=== PATIENT | male | born 1980 | race Caucasian/White ===

== ENCOUNTER 2019-09-24 13:24 | Emergency (ER) | payer OTHER ==
[2019-09-24 13:32] VITALS: BP 116/57; PULSE 90; TEMP 98; BMI 24.4
--- NOTE | 2019-09-24 13:34 | PDOC ---
Rapid Medical Evaluation Time Seen by Provider: 09/24/19 13:31 Medical Evaluation: Allergies Allergy/AdvReac Type Severity Reaction Status Date / Time No Known Allergies Allergy Verified 11/17/16 07:30 09/24/19 13:31 I have performed a brief in-person evaluation of this patient. The patient presents with a chief complaint of: Pain between "my scrotum and anus" this am w/ sensation of not fully emptying bladder x weeks. No testicular pain/swelling, penile discharge, n/v/f/c Pertinent physical exam findings:stable, defer rest of exam to FT provider I have ordered the following:ua The patient will proceed to the ED for further evaluation. Discharge Disposition - Diagnosis Pain in genitalia - Referrals - Patient Instructions - Post Discharge Activity
--- NOTE | 2019-09-24 14:10 | PDOC ---
History of Present Illness - General Chief Complaint: Pain Stated Complaint: TESTICULAR PAIN Time Seen by Provider: 09/24/19 13:31 - History of Present Illness Initial Comments: 09/24/19 14:07 39-year-old male without comorbidities presents for evaluation of peritoneal pain x1 day without systemic symptoms. He does have decreased velocity in his urine stream with hesitation and frequency without burning. That has been going on for about a month. He has no penile discharge. Past History - Past Medical History Allergies/Adverse Reactions: Allergies Allergy/AdvReac Type Severity Reaction Status Date / Time No Known Allergies Allergy Verified 09/24/19 13:32 Home Medications: Ambulatory Orders NK [No Known Home Medication] 11/17/16 COPD: No - Surgical History Appendectomy: Yes - Psycho Social/Smoking Cessation Hx Smoking History: Never smoked Have you smoked in the past 12 months: Yes Review of Systems - Review of Systems : Yes: Frequency, Pain, Urgency. No: Burning, Dysuria, Discharge, Flank Pain , Hematuria, Incontinence *Physical Exam - Vital Signs Last Vital Signs Temp Pulse Resp BP Pulse Ox 98 F 90 18 116/57 L 98 09/24/19 13:27 09/24/19 13:27 09/24/19 13:27 09/24/19 13:27 09/24/19 13:27 - Physical Exam Comments: 09/24/19 14:09 External genitalia are normal. Scrotum is normal skin color and temperature is testicles are nontender. No epididymal pain. Rectal exam is normal. Rectal tone is normal prostate is normal in contour soft and nontender. Examination was done with registered nurse in the room. Medical Decision Making - Medical Decision Making 09/24/19 15:22 UA negative I will have patient follow-up with urology. Discharge - Discharge Information Problems reviewed: Yes Clinical Impression/Diagnosis: Pain in genitalia Condition: Stable Disposition: HOME - Admission No - Follow up/Referral Referrals: Wally Garcia MD [Staff Physician] - - Patient Discharge Instructions Additional Instructions: Please follow-up with urology in 1 to 2 days without fail and return to the emergency room should symptoms worsen. - Post Discharge Activity
[2019-09-24 14:30] LABS: PH,URINE 5.5 (5.0-8.0); URINE APPEARANCE CLEAR; URINE BILIRUBIN NEGATIVE (NEGATIVE); URINE COLOR YELLOW; URINE GLUCOSE (UA) NEGATIVE (NEGATIVE); URINE KETONE TRACE (NEGATIVE); URINE LEUK ESTERASE NEGATIVE (NEGATIVE); URINE NITRITE NEGATIVE (NEGATIVE); URINE PROTEIN NEGATIVE (NEGATIVE)
== END 2019-09-24 15:29 | disposition home or self-care (01) ==
LOC: JERFT 13:24
DX: N50.89 Other specified disorders of the male genital organs (principal); R10.2 Pelvic and perineal pain
CPT/HCPCS: 36415; 81003; 87086; 87491; 87591; 99282-25